=== PATIENT | female | born 1990 | race Caucasian/White ===

== ENCOUNTER 2017-04-28 00:40 | Emergency (ER) | payer OTHER ==
[~2017-04-28] VITALS: Ht 167.6 cm; Wt 68.2 kg
[~2017-04-28 00:40] MED LIST: ETON1VAG VG; HYDR-4003 PO; IBUP200C11 PO
[2017-04-28 00:43] VITALS: BP 108/69; PULSE 69; RESP 16; O2SAT 100
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
--- NOTE | 2017-04-28 07:50 | DRSVH ---
PROCEDURE: X-RAY RIGHT HAND, TWO VIEWS ([id number]) INDICATIONS: swelling, deformity, limited ROM TECHNIQUE: 3 views of the hand(s) acquired. COMPARISON: None. FINDINGS: Bones: Nondisplaced fractures of the fourth and fifth metacarpals are noted. Displaced fracture of th e third metacarpal noted. Carpal bones are normally aligned. No suspicious bony lesions. Soft tissues: No suspicious soft tissue calcifications. IMPRESSION: Third, fourth and fifth metacarpal fractures. Dictated by: Genesis Le MD, PhD on 04/28/2017 at 7:47 Approved by: Genesis Le MD, PhD on 04/28/2017 at 7:48
== END 2017-04-28 01:58 | disposition home or self-care (01) ==
LOC: SED 00:40
DX: S62.322A Displaced fracture of shaft of third metacarpal bone, right hand, initial encounter for closed fracture (principal); V18.0XXA Pedal cycle driver injured in noncollision transport accident in nontraffic accident, initial encounter; Y92.410 Unspecified street and highway as the place of occurrence of the external cause; Y93.55 Activity, bike riding; Y99.8 Other external cause status; Z88.5 Allergy status to narcotic agent